=== PATIENT | female | born 1945 | race Two or more races ===

== ENCOUNTER 2019-04-03 14:28 | Emergency (ER) | payer OTHER ==
[~2019-04-03] VITALS: Ht 162.6 cm; Wt 108.9 kg
[~2019-04-03 14:28] MED LIST: DIOVAN HCT 160-1 TAB; JANUMET 50-501 UDTAB; LANTUS100 U/ML
[2019-04-03] MEDS ORDERED: ZESTRIL40 M1 (14:51)
[2019-04-03] MEDS ORDERED: LIPITOR20 MG (14:51)
[2019-04-03] MEDS ORDERED: GLIPIZIDE XL5 MG (14:52)
== END 2019-04-03 19:10 | disposition home or self-care (01) ==
LOC: ER 14:28
DX: M54.41 Lumbago with sciatica, right side (principal)